=== PATIENT | male | born 1995 | race African-American/Black ===

== ENCOUNTER 2016-04-14 21:48 | Inpatient (IN) | payer OTHER ==
[~2016-04-14] VITALS: Ht 177.8 cm; Wt 87.1 kg
[~2016-04-14 21:48] MED LIST: AMOXICILLIN500 MG PO; ESKALITH300 MG PO; FOCALIN5 MG PO; GENTAK3.5 GM LEFT EYE; OCUFLOX 0.100 DROP/5 LEFT EYE; RISPERDAL0.5 MG PO; TRAZODONE HCL50 MG PO; TYLENOL WITH C1 EACH PO
[2016-04-15 00:33] LABS: EOSINOPHIL (%) 1.8 % (0-5); EOSINOPHIL COUNT 0.2 K/uL (0-0.3); HEMATOCRIT 43.5 % (38.0-50.0); IMMATURE GRANULOCYTE (%) 0.3 % (0.0-0.7); IMMATURE GRANULOCYTE COUNT 0.3 K/uL; LYMPHOCYTE COUNT 2.1 K/uL (1.0-2.8); MCH 29.4 PG (29.0-34.0); MCHC 33.3 G/DL (30.0-36.0); MCV 88.2 FL (86-99); MEAN PLAT.VOLUME 10.4 uM^3 (9.0-12.4); MONOCYTE (%) 7.4 % (3-12); MONOCYTE COUNT 0.8 K/uL (0-0.8); PLATELET COUNT 202 K/uL (156-360); RBC DIS.WIDTH-CV 12.3 % (11.8-14.6); RED BLOOD COUNT 4.93 M/uL (4.00-5.50); WHITE BLOOD COUNT 11.1 K/uL (4.1-10.2)
[2016-04-15 00:42] LABS: CHLORIDE 104 mEq/L (99-109); POTASSIUM 3.8 mEq/L (3.7-5.4); SODIUM 144 mEq/L (136-147)
[2016-04-15 00:44] LABS: GLUCOSE 104 mg/dL (70-99)
[2016-04-15 00:45] LABS: ANION GAP 11 MEQ/L (2-14)
[2016-04-15 00:47] LABS: SERUM ETHYL ALCOHOL < 10 mg/dL
[2016-04-15 00:48] LABS: GFR ESTIMATE (CALCULATED) > 59 mL/min/
[2016-04-15 00:49] LABS: UREA NITROGEN (BUN) 14 mg/dL (9-23)
[2016-04-15] MEDS ORDERED: RISPERDAL1 MG PO (01:52)
[2016-04-15] MEDS ORDERED: LITHIUM CARBON300 MG PO (01:52)
[2016-04-15] MEDS ORDERED: FOCALIN5 MG PO (01:53)
[2016-04-15 03:14] VITALS: BP 156/83
[2016-04-15 07:45] VITALS: BP 117/60
[2016-04-15 15:53] VITALS: BP 125/82
[2016-04-16 07:51] VITALS: BP 117/57
[2016-04-16 15:20] VITALS: BP 124/68
[2016-04-17 07:40] VITALS: BP 115/57
[2016-04-17] MEDS ORDERED: LITHIUM CARBON300 MG PO (09:36)
[2016-04-17] MEDS ORDERED: RISPERDAL1 MG PO (09:36)
[2016-04-17] MEDS ORDERED: TRAZODONE HCL50 MG PO (09:36)
== END 2016-04-17 11:59 | disposition home or self-care (01) | DRG 886 ==
LOC: EME 21:48 → EDOF 04-15 01:26 → 1WEST 04-15 01:26
PROVIDERS: Emergency Medicine
DX: F63.9 Impulse disorder, unspecified (principal); F79 Unspecified intellectual disabilities; F84.9 Pervasive developmental disorder, unspecified
CPT/HCPCS: 80048; 80178; 85025; 90839; 99281; 99284; G0480